=== PATIENT | male | born 1985 | race Caucasian/White ===

== ENCOUNTER 2020-09-14 13:18 | Emergency (ER) | payer OTHER ==
[2020-09-14] MEDS ORDERED: Lidocaine 1% 10 ML MDV INJECT ONE (13:48)
--- NOTE | 2020-09-14 13:58 | EDM.PDOC ---
ED HPI GENERAL MEDICAL PROBLEM - General Chief Complaint: Laceration Stated Complaint: LT HAND POINTER FINGER LAC Time Seen by Provider: 09/14/20 13:40 Source of Information: Reports: Patient History Limitations: Reports: No Limitations - History of Present Illness INITIAL COMMENTS - FREE TEXT/NARRATIVE: 35-year-old male presents to the emergency department with complaints of a laceration to his left index finger. Patient reports he cut his finger on a saw that was not running in his garage. States his tetanus shot is up-to-date. - Related Data Allergies Allergy/AdvReac Type Severity Reaction Status Date / Time No Known Allergies Allergy Verified 09/14/20 13:36 Home Meds: Home Meds . [No Known Home Meds] 09/14/20 [History] Past Medical History - Past Health History Medical/Surgical History: Denies Medical/Surgical History Social & Family History - Tobacco Use Tobacco Use Status *Q: Never Tobacco User - Recreational Drug Use Recreational Drug Use: No ED ROS GENERAL - Review of Systems Review Of Systems: Comprehensive ROS is negative, except as noted in HPI. Constitutional: Reports: No Symptoms HEENT: Reports: No Symptoms Respiratory: Reports: No Symptoms Cardiovascular: Reports: No Symptoms Endocrine: Reports: No Symptoms GI/Abdominal: Reports: No Symptoms : Reports: No Symptoms Musculoskeletal: Reports: No Symptoms Skin: Reports: Wound Neurological: Reports: No Symptoms Psychiatric: Reports: No Symptoms Hematologic/Lymphatic: Reports: No Symptoms Immunologic: Reports: No Symptoms ED EXAM, SKIN/RASH Exam: See Below Exam Limited By: No Limitations General Appearance: Alert, WD/WN, No Apparent Distress Eye Exam: Bilateral Eye: PERRL Ears: Normal External Exam, Hearing Grossly Normal Nose: Normal Inspection Throat/Mouth: Normal Inspection, Normal Voice, No Airway Compromise Head: Atraumatic, Normocephalic Neck: Normal Inspection, Supple, Non-Tender, Full Range of Motion (Male) Exam: Deferred Rectal (Males) Exam: Deferred Extremities: Normal Inspection, Normal Range of Motion, Normal Capillary Refill Neurological: Alert, Oriented, Normal Cognition, No Motor/Sensory Deficits Psychiatric: Normal Affect, Normal Mood Skin: Warm, Dry, Wound/Incision (1.5 cm laceration noted to left index finger bleeding is controlled) Location, Skin: Other (Left index finger laceration) ED SKIN PROCEDURES - Laceration/Wound Repair Left Digit - 2nd (Index) Appearance: Superficial Distal NVT: Neuro & Vascular Intact, No Tendon Injury Anesthetic Type: Local Local Anesthesia - Lidocaine (Xylocaine): 1% Plain Local Anesthetic Volume: 2cc Skin Prep: Sterile Drape Closed with: Sutures Lac/Wound length In cm: 1.5 Suture Size: 4-0 # of Sutures: 5 Suture Type: Prolene, Interrupted, Simple Sterile Dressing Applied: Nurse Tetanus Status Addressed: Yes Complications: No Course - Vital Signs Text/Narrative:: Patient sustained a 1 and half centimeter laceration to his left index finger on the knuckle. Patient is able to flex left distal finger against resistance without difficulty so I do not feel there is any tendon involvement. States he has had a tetanus shot within the last 5 years. Last Recorded V/S: Last Vital Signs Temp 96.7 F L 09/14/20 13:35 Pulse 65 09/14/20 13:35 Resp 16 09/14/20 13:35 BP 124/89 09/14/20 13:35 Pulse Ox 99 09/14/20 13:35 - Orders/Labs/Meds Meds: Medications Discontinued Medications Generic Name Dose Route Start Last Admin Trade Name Chi PRN Reason Stop Dose Admin Lidocaine HCl 10 ml 09/14/20 13:48 09/14/20 13:58 Xylocaine 1% INJECT 09/14/20 13:49 10 ml ONETIME ONE Administration Departure - Departure Time of Disposition: 14:25 Disposition: Home, Self-Care 01 Condition: Good Clinical Impression: Laceration - Discharge Information Instructions: Laceration Care, Adult, [id number], Sutures, Independence, or Adhesive Wound Closure, [id number] Referrals: PCP,None [Primary Care Provider] - Forms: ED Department Discharge Additional Instructions: He was seen in the emergency department today for a 1 and half centimeter laceration to your left index finger. Per your report you have had a tetanus s hot within the last 5 years so you did not need to receive 1. Keep dressing in place for the next 24 hours. After that you can clean your wound once daily with gentle soap and water and pat to dry. Keep the wound dry. Please make follow-up arrangements with your primary care provider to have stitches removed in 1 to 10 days. Should you have swelling, redness, or drainage noted please return to the emergency department or follow-up with your primary care provider. Sepsis Event Note (ED) - Evaluation Sepsis Screening Result: No Definite Risk - Focused Exam Vital Signs: Vital Signs Temp Pulse Resp BP Pulse Ox 09/14/20 13:35 96.7 F L 65 16 124/89 99
== END 2020-09-14 14:55 | disposition home or self-care (01) ==
LOC: JD.ED 13:18
DX: S61.211A Laceration without foreign body of left index finger without damage to nail, initial encounter (principal); W27.0XXA Contact with workbench tool, initial encounter
CPT/HCPCS: 12001; 99282; 99282-25; J2001